=== PATIENT | female | born 1965 | race African-American/Black ===

== ENCOUNTER 2021-11-26 18:52 | Inpatient (IN) | payer OTHER ==
[~2021-11-26] VITALS: Ht 165.1 cm; Wt 103.9 kg
[~2021-11-26 18:52] MED LIST: ETOMIDATE 2MG/ML 10ML VIAL IV ONE; SUCCINYLCHOLINE CHLORIDE 200MG/10ML IV ONE
[2021-11-26] MEDS ORDERED: ACETAMINOPHEN 650MG SUPP PR ONE (19:45)
[2021-11-26] MEDS ORDERED: SODIUM CHLORIDE 0.9% 1000ML BAG (SEPSIS BOLUS) IV ONE (19:45)
[2021-11-26] MEDS ORDERED: HALOPERIDOL LACTATE 5MG/ML VIAL IM ONE (20:00)
[2021-11-26] MEDS ORDERED: DIAZEPAM 5 MG/ML 2ML CPJ IM ONE (20:00)
[2021-11-26] MEDS ORDERED: MIDAZOLAM HCL 2 MG/2 ML VIAL IM ONE ×2 (20:15→21:15)
[2021-11-26 22:20] LABS: CHLORIDE 103 mEq/L (98-107)
[2021-11-26 22:26] LABS: BASOPHILS % 0.9 % (0.0-2.0); ETHANOL BLOOD < 10 mg/dL; HEMOGLOBIN. 14.9 g/dL (12.0-16.0); LYMPHOCYTES % 15.6 % (20.0-50.0); MEAN CORPUSCULAR HEMOGLOBIN 32.7 pg (28.0-32.0); MEAN CORPUSCULAR VOLUME 96.5 fL (81.0-99.0); MONOCYTES % 10.3 % (2.0-8.0); NEUTROPHILS % 73.2 % (40.0-76.0); PLATELET 229 x1000/uL (130-400); RED BLOOD CELL COUNT 4.56 mill/uL (4.2-5.4)
[2021-11-26 22:43] LABS: T4 FREE 1.24 ng/dL (0.76-1.46)
[2021-11-26 22:54] LABS: CREATINE KINASE 5753 IU/L (26-192)
[2021-11-26] MEDS ORDERED: ACETAMINOPHEN 650MG SUPP PR NR (22:54)
[2021-11-26] MEDS ORDERED: KETOROLAC 30MG/ML VIAL IV ONE (23:15)
[2021-11-26] MEDS ORDERED: CEFTRIAXONE 1 G PREMIX 50 ML IV ONE (23:15)
[2021-11-26] MEDS ORDERED: AZITHROMYCIN 500MG/250ML 250 ML IV ONE (23:15)
[2021-11-26] MEDS ORDERED: MIDAZOLAM HCL 2 MG/2 ML VIAL IV ONE (23:30)
[2021-11-27] VITALS (41 sets, daily range): BP systolic 85–169; BP diastolic 55–97
[2021-11-27] MEDS ORDERED: SUCCINYLCHOLINE CHLORIDE 200MG/10ML IV ONE (01:15)
[2021-11-27] MEDS ORDERED: FENTANYL 2500MCG/250ML PMX 250 ML IV PRN (01:15)
[2021-11-27] MEDS ORDERED: ETOMIDATE 2MG/ML 10ML VIAL IV ONE (01:15)
[2021-11-27 02:16] LABS: INR 1.1; PROTHROMBIN TIME 11.7 sec (9.6-11.0)
[2021-11-27 02:20] LABS: CREATINE KINASE 6772 IU/L (26-192)
[2021-11-27] MEDS ORDERED: NOREPINEPHRINE 8MG/250ML PMX 250 ML IV PRN (03:45)
[2021-11-27] MEDS: MIDAZOLAM 100MG/100ML PREMIX IV PRN ×2 (04:10→15:08)
[2021-11-27] MEDS ORDERED: DEXTROSE 50% WATER 50ML SYRINGE IV PRN (04:30)
[2021-11-27] MEDS ORDERED: NOREPINEPHRINE 8 MG in DEXT 5% WATER 242 ML IV PRN (04:30)
[2021-11-27 04:59] LABS: BG BASE EXCESS -0.5 mmol/L (-2.0-2.0); BG CARBOXYHEMOGLOBIN 0.2 % (0.5-1.5); BG DEOXYHEMOGLOBIN 0.6 % (0.0-5.0); BG FRACTION INSPIRED OXYGEN 60; BG HCO3 ACT 22.8 mmol/L (22.0-26.0); BG METHEMOGLOBIN 0.3 % (0.0-1.5); BG OXYGEN SATURATION 99.4 % (92.0-98.5); BG OXYHEMOGLOBIN 98.9 % (94.0-97.0); BG PCO2 33.6 mmHg (35.0-45.0); BG PO2 257.9 mmHg (75.0-100.0); BG SAMPLE SITE RIGHT RADIAL; BG TOTAL HEMOGLOBIN 13.5 g/dL (12.0-18.0); BG VENT MODE VENT - AC
[2021-11-27 05:01] LABS: HEMATOCRIT 41.2 % (36.0-48.0); HEMOGLOBIN 13.5 g/dL (12.0-16.0); MEAN CORPUSCULAR HEMOGLOBIN 32.6 pg (28.0-32.0); MEAN CORPUSCULAR VOLUME 99.5 fL (81.0-99.0); PLATELET 202 x1000/uL (130-400); RED BLOOD CELL COUNT 4.14 mill/uL (4.2-5.4); RED CELL DISTRIBUTION WIDTH 13.2 % (11.6-14.6)
[2021-11-27] MEDS: SODIUM CHLORIDE 0.9% 1,000 ML IV SCH ×2 (05:08→20:38)
[2021-11-27 05:16] LABS: CHLORIDE 110 mEq/L (98-107)
[2021-11-27 05:23] LABS: HDL CHOLESTEROL 39 mg/dL (40-59); LDL CHOLESTEROL 113 mg/dL (5-100)
[2021-11-27] MEDS ORDERED: VANCOMYCIN 750MG PREMIX 150 ML IV SCH (06:00)
[2021-11-27] MEDS: PIPERACILLIN/TAZOBACTAM 3.375 G in DEXTROSE 5% WATER 50 ML IV SCH ×2 (06:01→14:04)
[2021-11-27 06:44] LABS: CLARITY URINE CLOUDY (CLEAR); COLOR URINE DARK YELLOW (YELLOW); KETONES URINE 1+ (NEGATIVE); LEUKOCYTE ESTERASE URINE NEGATIVE (NEGATIVE); NITRITE URINE NEGATIVE (NEGATIVE); OCCULT BLOOD URINE 2+ (NEGATIVE); PH URINE 5.5 (4.5-8.0); PROTEIN URINE 2+ (NEGATIVE); SPECIFIC GRAVITY URINE 1.025 (1.005-1.030)
[2021-11-27 07:00] LABS: *AMPHETAMINES SCREEN URINE NEGATIVE (NEGATIVE); *BARBITURATES SCREEN URINE NEGATIVE (NEGATIVE); *BENZODIAZEPINES SCREEN URINE PRESUMTIVE POSITIVE (NEGATIVE); *COCAINE SCREEN URINE NEGATIVE (NEGATIVE); CANNABINOID URINE SCREEN PRESUMTIVE POSITIVE (NEGATIVE); METHADONE URINE SCREEN NEGATIVE (NEGATIVE); OPIATES URINE SCREEN NEGATIVE (NEGATIVE); PHENCYCLIDINE URINE SCREEN NEGATIVE (NEGATIVE)
[2021-11-27] MEDS: INSULIN LISPRO 100 UNITS/ML SUBCUT SCH ×4 (08:20→20:18)
[2021-11-27] MEDS: BLOOD SUGAR DIAGNOSTIC STRIP TEST SCH ×4 (09:00→20:19)
[2021-11-27] MEDS: PANTOPRAZOLE SODIUM 40 MG/VIAL IV SCH ×2 (09:00→10:08)
[2021-11-27] MEDS ORDERED: CEFTRIAXONE 1 G PREMIX 50 ML IV SCH (09:45)
[2021-11-27] MEDS: LACTULOSE 20G/30ML UDC PO SCH ×2 (10:00→18:45)
[2021-11-27] MEDS: ASPIRIN 81MG TABLET PO SCH (10:00)
[2021-11-27 10:17] LABS: BG BASE EXCESS 2.7 mmol/L (-2.0-2.0); BG CARBOXYHEMOGLOBIN 0.6 % (0.5-1.5); BG DEOXYHEMOGLOBIN 1.3 % (0.0-5.0); BG FRACTION INSPIRED OXYGEN 40; BG HCO3 ACT 26.8 mmol/L (22.0-26.0); BG METHEMOGLOBIN 0.3 % (0.0-1.5); BG OXYGEN SATURATION 98.7 % (92.0-98.5); BG OXYHEMOGLOBIN 97.8 % (94.0-97.0); BG PCO2 39.6 mmHg (35.0-45.0); BG PH 7.448 (7.350-7.450); BG PO2 130.7 mmHg (75.0-100.0); BG SAMPLE SITE RIGHT RADIAL; BG TOTAL HEMOGLOBIN 13.4 g/dL (12.0-18.0); BG VENT MODE VENT - AC
[2021-11-27 15:35] LABS: HEPATITIS B SURFACE ANTIGEN NEGATIVE
[2021-11-27] MEDS ORDERED: NAPR-681 PO (17:47)
[2021-11-27] MEDS ORDERED: MIDAZOLAM 100MG/100ML PMX 100 ML IV PRN (18:45)
[2021-11-27] MEDS: FENTANYL CITRATE/PF 2,500 MCG in SODIUM CHLORIDE 0.9% 200 ML IV PRN (19:05)
[2021-11-27] MEDS: VANCOMYCIN 1GM PMX (XELLIA) 200 ML IV SCH (19:07)
[2021-11-27] MEDS: ATORVASTATIN CALCIUM 40MG TABLET PO SCH (20:37)
[2021-11-27] MEDS ORDERED: CEFTRIAXONE 1,000 MG in DEXTROSE 5% WATER 50 ML IV SCH (22:00)
[2021-11-28] VITALS (135 sets, daily range): BP systolic 82–173; BP diastolic 47–126
[2021-11-28] MEDS: NOREPINEPHRINE 8 MG in DEXT 5% WATER 242 ML IV PRN ×2 (01:30→07:07)
[2021-11-28] MEDS: LACTULOSE 20G/30ML UDC PO SCH ×3 (02:59→17:00)
[2021-11-28] MEDS: SODIUM CHLORIDE 0.9% 1,000 ML IV SCH (04:34)
[2021-11-28] MEDS: VANCOMYCIN 1GM PMX (XELLIA) 200 ML IV SCH ×2 (07:04→17:00)
[2021-11-28] MEDS: MIDAZOLAM HCL 100 MG in SODIUM CHLORIDE 0.9% 80 ML IV PRN (07:08)
[2021-11-28] MEDS ORDERED: LIDOCAINE HCL/PF 1% 10 MG/ML 5ML VIAL ONE (07:45)
[2021-11-28] MEDS: INSULIN LISPRO 100 UNITS/ML SUBCUT SCH ×4 (08:03→21:00)
[2021-11-28] MEDS: BLOOD SUGAR DIAGNOSTIC STRIP TEST SCH ×4 (08:03→21:00)
[2021-11-28] MEDS: ASPIRIN 81MG TABLET PO SCH (08:06)
[2021-11-28] MEDS: PANTOPRAZOLE SODIUM 40 MG/VIAL IV SCH (08:06)
[2021-11-28] MEDS: IPRATROPIUM/ALBUTEROL 0.5-3(2.5)MG/3ML NEB HHN SCH ×4 (08:34→20:49)
[2021-11-28 11:50] LABS: BG BASE EXCESS -2.3 mmol/L (-2.0-2.0); BG CARBOXYHEMOGLOBIN 0.2 % (0.5-1.5); BG DEOXYHEMOGLOBIN 2.4 % (0.0-5.0); BG FRACTION INSPIRED OXYGEN 40; BG HCO3 ACT 22.4 mmol/L (22.0-26.0); BG METHEMOGLOBIN 0.3 % (0.0-1.5); BG OXYGEN SATURATION 97.6 % (92.0-98.5); BG OXYHEMOGLOBIN 97.1 % (94.0-97.0); BG PCO2 38.4 mmHg (35.0-45.0); BG PH 7.384 (7.350-7.450); BG PO2 100.3 mmHg (75.0-100.0); BG SAMPLE SITE LEFT RADIAL; BG TOTAL HEMOGLOBIN 12.5 g/dL (12.0-18.0); BG VENT MODE VENT - AC
[2021-11-28 13:13] LABS: BASOPHILS % 0.6 % (0.0-2.0); EOSINOPHILS % 0.9 % (0.0-5.0); HEMOGLOBIN. 11.9 g/dL (12.0-16.0); LYMPHOCYTES % 20.9 % (20.0-50.0); MEAN CORPUSCULAR HEMOGLOBIN 32.9 pg (28.0-32.0); MEAN CORPUSCULAR VOLUME 99.4 fL (81.0-99.0); MEAN PLATELET VOLUME 9.2 fl (7.4-10.4); MONOCYTES % 9.5 % (2.0-8.0); NEUTROPHILS % 68.1 % (40.0-76.0); PLATELET 138 x1000/uL (130-400); RED BLOOD CELL COUNT 3.62 mill/uL (4.2-5.4); RED CELL DISTRIBUTION WIDTH 13.4 % (11.6-14.6)
[2021-11-28 13:31] LABS: CHLORIDE 112 mEq/L (98-107)
[2021-11-28 13:45] LABS: HDL CHOLESTEROL 33 mg/dL (40-59); LDL CHOLESTEROL 95 mg/dL (5-100); T4 FREE 1.18 ng/dL (0.76-1.46)
[2021-11-28] MEDS: PIPERACILLIN/TAZOBACTAM 3.375 G in DEXTROSE 5% WATER 50 ML IV SCH ×2 (16:55→23:36)
[2021-11-28] MEDS: DOPAMINE 400MG/250ML PREMIX 250 ML IV PRN (20:41)
[2021-11-28] MEDS: ACYCLOVIR INJ 750 MG in DEXT 5% WATER 125 ML IV SCH (21:50)
[2021-11-28] MEDS: ATORVASTATIN CALCIUM 40MG TABLET PO SCH (21:50)
[2021-11-29] VITALS (77 sets, daily range): BP systolic 93–196; BP diastolic 35–116
[2021-11-29 00:29] LABS: CREATINE KINASE MB FRACTION 4.8 ng/mL (0.5-3.6)
[2021-11-29] MEDS: IPRATROPIUM/ALBUTEROL 0.5-3(2.5)MG/3ML NEB HHN SCH ×6 (00:29→21:07)
[2021-11-29] MEDS: MIDAZOLAM HCL 100 MG in SODIUM CHLORIDE 0.9% 80 ML IV PRN (01:50)
[2021-11-29] MEDS: LACTULOSE 20G/30ML UDC PO SCH ×3 (01:50→18:10)
[2021-11-29] MEDS: ACYCLOVIR INJ 750 MG in DEXT 5% WATER 125 ML IV SCH ×3 (05:07→21:06)
[2021-11-29] MEDS: PIPERACILLIN/TAZOBACTAM 3.375 G in DEXTROSE 5% WATER 50 ML IV SCH ×3 (05:07→21:06)
[2021-11-29] MEDS: VANCOMYCIN 1GM PMX (XELLIA) 200 ML IV SCH (05:08)
[2021-11-29] MEDS: DOPAMINE 400MG/250ML PREMIX 250 ML IV PRN (05:08)
[2021-11-29] MEDS: FENTANYL CITRATE/PF 2,500 MCG in SODIUM CHLORIDE 0.9% 200 ML IV PRN (05:09)
[2021-11-29] MEDS: SODIUM CHLORIDE 0.9% 1,000 ML IV SCH ×2 (06:30→14:01)
[2021-11-29 06:40] LABS: CHLORIDE 107 mEq/L (98-107)
[2021-11-29 06:49] LABS: CREATINE KINASE MB FRACTION 3.8 ng/mL (0.5-3.6)
[2021-11-29] MEDS: BLOOD SUGAR DIAGNOSTIC STRIP TEST SCH ×4 (07:50→21:06)
[2021-11-29] MEDS: INSULIN LISPRO 100 UNITS/ML SUBCUT SCH ×4 (08:20→21:00)
[2021-11-29] MEDS: ASPIRIN 81MG TABLET PO SCH (08:54)
[2021-11-29] MEDS: PANTOPRAZOLE SODIUM 40 MG/VIAL IV SCH (08:55)
[2021-11-29 09:03] LABS: BG CARBOXYHEMOGLOBIN 0.6 % (0.5-1.5); BG DEOXYHEMOGLOBIN 0.9 % (0.0-5.0); BG FRACTION INSPIRED OXYGEN 40; BG HCO3 ACT 21.6 mmol/L (22.0-26.0); BG METHEMOGLOBIN 0.2 % (0.0-1.5); BG OXYGEN SATURATION 99.1 % (92.0-98.5); BG OXYHEMOGLOBIN 98.3 % (94.0-97.0); BG PCO2 33.4 mmHg (35.0-45.0); BG PH 7.429 (7.350-7.450); BG SAMPLE SITE RIGHT RADIAL; BG TOTAL HEMOGLOBIN 13.1 g/dL (12.0-18.0); BG VENT MODE VENT - AC
[2021-11-29] MEDS ORDERED: GADOTERATE MEGLUMINE 5 MMOL/10 ML VIAL IV ONE (12:34)
[2021-11-29 15:38] LABS: BG BASE EXCESS 1.5 mmol/L (-2.0-2.0); BG CARBOXYHEMOGLOBIN 0.3 % (0.5-1.5); BG DEOXYHEMOGLOBIN 1.3 % (0.0-5.0); BG FRACTION INSPIRED OXYGEN 40; BG HCO3 ACT 25.4 mmol/L (22.0-26.0); BG OXYGEN SATURATION 98.7 % (92.0-98.5); BG OXYHEMOGLOBIN 98.4 % (94.0-97.0); BG PCO2 37.7 mmHg (35.0-45.0); BG PH 7.447 (7.350-7.450); BG PO2 132.2 mmHg (75.0-100.0); BG SAMPLE SITE LEFT RADIAL; BG TOTAL HEMOGLOBIN 12.9 g/dL (12.0-18.0); BG VENT MODE VENT - CPAP
[2021-11-29] MEDS ORDERED: VANCOMYCIN 1GM PMX (XELLIA) 200 ML IV SCH (21:00)
[2021-11-29] MEDS: ATORVASTATIN CALCIUM 40MG TABLET PO SCH (21:06)
[2021-11-30] VITALS (35 sets, daily range): BP systolic 104–176; BP diastolic 32–118
[2021-11-30] MEDS: IPRATROPIUM/ALBUTEROL 0.5-3(2.5)MG/3ML NEB HHN SCH ×5 (01:08→20:47)
[2021-11-30] MEDS: SODIUM CHLORIDE 0.9% 1,000 ML IV SCH ×2 (01:11→15:59)
[2021-11-30] MEDS: ACYCLOVIR INJ 750 MG in DEXT 5% WATER 125 ML IV SCH ×3 (03:20→19:58)
[2021-11-30] MEDS: LACTULOSE 20G/30ML UDC PO SCH ×3 (03:20→18:00)
[2021-11-30 06:18] LABS: HEMATOCRIT. 35.4 % (36.0-48.0); HEMOGLOBIN. 11.7 g/dL (12.0-16.0); MEAN CORPUSCULAR HEMOGLOBIN 32.3 pg (28.0-32.0); MEAN PLATELET VOLUME 8.5 fl (7.4-10.4); PLATELET 149 x1000/uL (130-400); RED BLOOD CELL COUNT 3.61 mill/uL (4.2-5.4); RED CELL DISTRIBUTION WIDTH 12.9 % (11.6-14.6)
[2021-11-30 06:40] LABS: CHLORIDE 107 mEq/L (98-107)
[2021-11-30] MEDS: PIPERACILLIN/TAZOBACTAM 3.375 G in DEXTROSE 5% WATER 50 ML IV SCH ×3 (06:48→21:14)
[2021-11-30 07:00] LABS: CREATINE KINASE 2786 IU/L (26-192); PHOSPHORUS 2.5 mg/dL (2.5-4.9)
[2021-11-30] MEDS: INSULIN LISPRO 100 UNITS/ML SUBCUT SCH ×4 (08:17→21:00)
[2021-11-30] MEDS: BLOOD SUGAR DIAGNOSTIC STRIP TEST SCH ×4 (08:17→21:11)
[2021-11-30] MEDS ORDERED: POTASSIUM CHLORIDE 20MEQ/PACKET PO SCH (08:45)
[2021-11-30] MEDS: PANTOPRAZOLE SODIUM 40 MG/VIAL IV SCH (11:32)
[2021-11-30 13:58] LABS: PLATELET ESTIMATE NORMAL
[2021-12-01] VITALS (54 sets, daily range): BP systolic 127–163; BP diastolic 66–108
[2021-12-01] MEDS: IPRATROPIUM/ALBUTEROL 0.5-3(2.5)MG/3ML NEB HHN SCH ×6 (00:50→20:01)
[2021-12-01] MEDS: LACTULOSE 20G/30ML UDC PO SCH ×2 (03:32→09:41)
[2021-12-01] MEDS: ACYCLOVIR INJ 750 MG in DEXT 5% WATER 125 ML IV SCH ×3 (03:49→20:35)
[2021-12-01] MEDS: SODIUM CHLORIDE 0.9% 1,000 ML IV SCH ×3 (03:50→17:24)
[2021-12-01] MEDS: PIPERACILLIN/TAZOBACTAM 3.375 G in DEXTROSE 5% WATER 50 ML IV SCH ×3 (05:06→21:08)
[2021-12-01] MEDS: INSULIN LISPRO 100 UNITS/ML SUBCUT SCH ×4 (07:32→21:00)
[2021-12-01] MEDS: BLOOD SUGAR DIAGNOSTIC STRIP TEST SCH ×4 (07:32→21:08)
[2021-12-01] MEDS: PANTOPRAZOLE SODIUM 40 MG/VIAL IV SCH (09:41)
[2021-12-01] MEDS: AMLODIPINE 10MG TABLET PO SCH (09:41)
[2021-12-02] VITALS (37 sets, daily range): BP systolic 119–188; BP diastolic 52–146
[2021-12-02] MEDS: IPRATROPIUM/ALBUTEROL 0.5-3(2.5)MG/3ML NEB HHN SCH ×5 (00:14→22:00)
[2021-12-02] MEDS: ACYCLOVIR INJ 750 MG in DEXT 5% WATER 125 ML IV SCH ×3 (03:35→22:56)
[2021-12-02] MEDS: PIPERACILLIN/TAZOBACTAM 3.375 G in DEXTROSE 5% WATER 50 ML IV SCH ×3 (05:41→22:56)
[2021-12-02] MEDS: SODIUM CHLORIDE 0.9% 1,000 ML IV SCH ×2 (07:19→21:22)
[2021-12-02] MEDS: BLOOD SUGAR DIAGNOSTIC STRIP TEST SCH ×4 (07:50→21:23)
[2021-12-02] MEDS: AMLODIPINE 10MG TABLET PO SCH (08:48)
[2021-12-02] MEDS: PANTOPRAZOLE SODIUM 40 MG/VIAL IV SCH (08:48)
[2021-12-02] MEDS: LACTULOSE 20G/30ML UDC PO SCH (08:48)
[2021-12-02] MEDS: INSULIN LISPRO 100 UNITS/ML SUBCUT SCH ×4 (08:49→21:22)
[2021-12-02 10:10] LABS: HEMATOCRIT 39.5 % (36.0-48.0); HEMOGLOBIN 13.4 g/dL (12.0-16.0); MEAN CORPUSCULAR HEMOGLOBIN 32.7 pg (28.0-32.0); MEAN CORPUSCULAR VOLUME 96.5 fL (81.0-99.0); PLATELET 187 x1000/uL (130-400); RED BLOOD CELL COUNT 4.09 mill/uL (4.2-5.4); RED CELL DISTRIBUTION WIDTH 13.1 % (11.6-14.6)
[2021-12-02 10:21] LABS: CHLORIDE 104 mEq/L (98-107)
[2021-12-03] VITALS: BP 136/95
[2021-12-03] MEDS: IPRATROPIUM/ALBUTEROL 0.5-3(2.5)MG/3ML NEB HHN SCH ×4 (01:32→20:08)
[2021-12-03 04:00] VITALS: BP 151/100
[2021-12-03] MEDS: ACYCLOVIR INJ 750 MG in DEXT 5% WATER 125 ML IV SCH ×3 (05:11→21:27)
[2021-12-03] MEDS: BLOOD SUGAR DIAGNOSTIC STRIP TEST SCH ×4 (07:20→21:27)
[2021-12-03 08:00] VITALS: BP 150/109
[2021-12-03] MEDS: INSULIN LISPRO 100 UNITS/ML SUBCUT SCH ×4 (09:29→21:25)
[2021-12-03] MEDS: PANTOPRAZOLE SODIUM 40 MG/VIAL IV SCH (09:30)
[2021-12-03] MEDS: LACTULOSE 20G/30ML UDC PO SCH (09:30)
[2021-12-03] MEDS: AMLODIPINE 10MG TABLET PO SCH (09:30)
[2021-12-03] MEDS: SODIUM CHLORIDE 0.9% 1,000 ML IV SCH (09:30)
[2021-12-03 12:14] VITALS: BP 133/77
[2021-12-03 16:00] VITALS: BP 123/82
[2021-12-03] MEDS: ACETAMINOPHEN 650MG/20.3ML UDC PO PRN (19:47)
[2021-12-03 20:00] VITALS: BP 141/99
[2021-12-04] VITALS: BP 122/93
[2021-12-04] MEDS: IPRATROPIUM/ALBUTEROL 0.5-3(2.5)MG/3ML NEB HHN SCH ×6 (00:43→20:16)
[2021-12-04 04:00] VITALS: BP 115/91
[2021-12-04] MEDS: ACYCLOVIR INJ 750 MG in DEXT 5% WATER 125 ML IV SCH ×3 (05:09→21:38)
[2021-12-04] MEDS: BLOOD SUGAR DIAGNOSTIC STRIP TEST SCH ×4 (05:16→21:38)
[2021-12-04] MEDS: INSULIN LISPRO 100 UNITS/ML SUBCUT SCH ×4 (07:22→21:00)
[2021-12-04 08:00] VITALS: BP 148/104
[2021-12-04] MEDS ORDERED: LIDOCAINE HCL 1% 10 MG/ML 10ML VIAL ONE (08:32)
[2021-12-04] MEDS: PANTOPRAZOLE SODIUM 40 MG/VIAL IV SCH (10:55)
[2021-12-04] MEDS: LACTULOSE 20G/30ML UDC PO SCH (10:55)
[2021-12-04] MEDS: AMLODIPINE 10MG TABLET PO SCH (10:55)
[2021-12-04 12:00] VITALS: BP 129/87
[2021-12-04 12:38] LABS: GLUCOSE CSF 84 mg/dL (41-75)
[2021-12-04 16:00] VITALS: BP 139/92
[2021-12-04 20:00] VITALS: BP 147/90
[2021-12-05] VITALS (7 sets, daily range): BP systolic 115–150; BP diastolic 72–93
[2021-12-05] MEDS: IPRATROPIUM/ALBUTEROL 0.5-3(2.5)MG/3ML NEB HHN SCH ×5 (00:30→21:58)
[2021-12-05] MEDS: ACYCLOVIR INJ 750 MG in DEXT 5% WATER 125 ML IV SCH ×3 (04:50→21:00)
[2021-12-05] MEDS: BLOOD SUGAR DIAGNOSTIC STRIP TEST SCH ×4 (06:52→21:00)
[2021-12-05] MEDS: INSULIN LISPRO 100 UNITS/ML SUBCUT SCH ×4 (07:31→21:00)
[2021-12-05] MEDS: AMLODIPINE 10MG TABLET PO SCH (08:45)
[2021-12-05] MEDS: LACTULOSE 20G/30ML UDC PO SCH (08:45)
[2021-12-05] MEDS: PANTOPRAZOLE SODIUM 40 MG/VIAL IV SCH (08:49)
[2021-12-05] MEDS ORDERED: AMLO10TA80 PO (13:37)
[2021-12-05] MEDS ORDERED: LACT10SO7 PO (13:37)
[2021-12-05] MEDS ORDERED: VALA100044 PO (16:08)
[2021-12-05 16:55] LABS: BASOPHILS % 0.3 % (0.0-2.0); EOSINOPHILS % 2.2 % (0.0-5.0); HEMATOCRIT. 39.7 % (36.0-48.0); HEMOGLOBIN. 13.2 g/dL (12.0-16.0); LYMPHOCYTES % 31.7 % (20.0-50.0); MEAN CORPUSCULAR HEMOGLOBIN 33.1 pg (28.0-32.0); MEAN CORPUSCULAR VOLUME 99.5 fL (81.0-99.0); MEAN PLATELET VOLUME 8.5 fl (7.4-10.4); MONOCYTES % 13.2 % (2.0-8.0); NEUTROPHILS % 52.6 % (40.0-76.0); PLATELET 224 x1000/uL (130-400); RED BLOOD CELL COUNT 3.99 mill/uL (4.2-5.4); RED CELL DISTRIBUTION WIDTH 13.1 % (11.6-14.6)
[2021-12-05 17:04] LABS: CHLORIDE 104 mEq/L (98-107)
[2021-12-05] MEDS: ACETAMINOPHEN 650MG/20.3ML UDC PO PRN (21:04)
[2021-12-06] VITALS: BP 146/94
[2021-12-06] MEDS: IPRATROPIUM/ALBUTEROL 0.5-3(2.5)MG/3ML NEB HHN SCH ×3 (00:23→09:53)
[2021-12-06 04:00] VITALS: BP 154/81
[2021-12-06] MEDS: ACYCLOVIR INJ 750 MG in DEXT 5% WATER 125 ML IV SCH (04:39)
[2021-12-06] MEDS: BLOOD SUGAR DIAGNOSTIC STRIP TEST SCH (06:36)
[2021-12-06 08:00] VITALS: BP 133/89
[2021-12-06] MEDS: INSULIN LISPRO 100 UNITS/ML SUBCUT SCH (09:47)
[2021-12-06] MEDS: AMLODIPINE 10MG TABLET PO SCH (09:48)
[2021-12-06] MEDS: PANTOPRAZOLE SODIUM 40 MG/VIAL IV SCH (09:48)
[2021-12-06] MEDS: LACTULOSE 20G/30ML UDC PO SCH (09:48)
[2021-12-06] MEDS: ACETAMINOPHEN 650MG/20.3ML UDC PO PRN (09:48)
[2021-12-06 10:48] VITALS: BP 133/89
[2021-12-07 14:42] LABS: *HSV 1 DNA PCR <0.91
== END 2021-12-06 11:50 | disposition home or self-care (01) | DRG 720 ==
LOC: ER 18:52 → CANRESERV 11-27 01:09 → ENRESERV 11-27 01:09 → EDBD 11-27 01:11 → CVICU 11-27 01:11 → EDBEDREQSVC 11-27 01:16 → EDBEDREQTM 11-27 01:16 → ENRESERV 11-27 14:26 → 6WST 12-02 12:04
PROVIDERS: ADMIT Family Medicine; ATTEND Family Medicine
PROC: 0BH17EZ Insertion of Endotracheal Airway into Trachea, Via Natural or Artificial Opening (ICD-10-PCS; 2021-11-27)
PROC: B548ZZA Ultrasonography of Superior Vena Cava, Guidance (ICD-10-PCS; principal; 2021-11-28)
PROC: 5A1945Z Respiratory Ventilation, 24-96 Consecutive Hours (ICD-10-PCS; 2021-11-28)
PROC: 02HV33Z Insertion of Infusion Device into Superior Vena Cava, Percutaneous Approach (ICD-10-PCS; 2021-11-28)
PROC: 4A00X4Z Measurement of Central Nervous Electrical Activity, External Approach (ICD-10-PCS; 2021-11-29)
PROC: 009U3ZX Drainage of Spinal Canal, Percutaneous Approach, Diagnostic (ICD-10-PCS; 2021-12-04)
PROC: B01BYZZ Fluoroscopy of Spinal Cord using Other Contrast (ICD-10-PCS; 2021-12-04)
DX: A41.9 Sepsis, unspecified organism (principal); J96.00 Acute respiratory failure, unspecified whether with hypoxia or hypercapnia; R65.21 Severe sepsis with septic shock; G92.8 Other toxic encephalopathy; E72.20 Disorder of urea cycle metabolism, unspecified; B19.20 Unspecified viral hepatitis C without hepatic coma; E11.9 Type 2 diabetes mellitus without complications; K57.90 Diverticulosis of intestine, part unspecified, without perforation or abscess without bleeding; M62.82 Rhabdomyolysis; E87.2 Acidosis; R74.01 Elevation of levels of liver transaminase levels; F12.90 Cannabis use, unspecified, uncomplicated; K76.0 Fatty (change of) liver, not elsewhere classified; Z20.822 Contact with and (suspected) exposure to COVID-19
CPT/HCPCS: 31500; 36415; 36573; 36600; 62328; 70551; 70552; 71045; 71250; 74176; 80048; 80053; 80061; 80076; 80202; 80305; 80307; 80320; 80329; 81003; 82140; 82375; 82550; 82553; 82805; 82945; 82962; 83036; 83605; 83735; 83880; 84100; 84145; 84157; 84439; 84443; 84484; 85025; 85027; 85379; 86694; 86695; 86696; 86705; 86709; 86803; 86850; 86900; 87070; 87340; 87426; 87529; 92610; 93005; 93306; 93971; 94002; 94003; 94640; 95816; 97161; 97162; 97164; 97165; 97166; 97530; 99291; A6261; A9577; C1725; C1893; C9113; C9803; J0133; J0330; J0456; J0696; J1265; J1630; J1815; J1885; J2250; J2543; J3010; J3370; J3490; J7030; J7050; J7060; G0480